=== PATIENT | male | born 1955 | race Caucasian/White ===

== ENCOUNTER → 2024-01-14 07:30 | Outpatient (REF) | payer OTHER, SELFPAY | LOC: HWRAD 07:30 | PROVIDERS: ATTENDING PHYSICIAN Nurse Practitioner Family | DX: M25.511 Pain in right shoulder (principal) | CPT/HCPCS: 73030 ==

== ENCOUNTER 2024-01-26 23:02 | Observation (INO) | payer OTHER, SELFPAY ==
--- NOTE | 2024-01-26 19:10 | ED.GENMED ---
History of Present Illness
General
Chief Complaint: Seizure
Time Seen by Provider: 01/26/24 19:10
History of Present Illness
History of Present Illness:
HPI: Patient presents with headache. The time of onset is unclear as the patient is currently a rather poor historian. He comes in with extremity tremor and flexion contracture to the upper extremity but does not feel his spinal cord stimulator is
a contributing factor. At 8:15 PM, I spoke to family. They tell me that he had a cortisone injection into her shoulder earlier today which caused very high blood sugar readings. He also started Ozempic a few days ago.
EXAM:
GENERAL: The patient appears uncomfortable
HEENT: Moist oral mucosa
CARDIOVASCULAR: No murmurs, normal heart rate, regular rhythm, No chest wall tenderness
PULMONARY: No respiratory distress, breath sounds are clear and equal
ABDOMEN: Soft with no peritoneal signs, no tenderness
NEUROLOGIC: Flexion contracture noted to the upper extremities and he has some difficulty following simple commands, is not dysarthric but there is some aphasia, tremor noted to the lower extremities bilaterally
PSYCHIATRIC: Insight and judgment are somewhat impaired
EXTREMITIES: Tremor noted as above, nontender
SKIN: No rash, no lesions
TIME OF INITIAL ENCOUNTER: 7:15 PM
NUMBER AND COMPLEXITY OF PROBLEMS ADDRESSED AT THE ENCOUNTER
� Chronic conditions affecting care: Complex migraine, CVA, high blood pressure, hyperlipidemia, CAD with coronary stents, BPH, diabetes
� Acute Exacerbation and/or Progression of Chronic Illness: This is an acute illness
� Differential Diagnosis includes: Exacerbation of migraine, intracranial pathology, seizure, CVA, diabetic complication
AMOUNT AND/OR COMPLEXITY OF DATA TO BE REVIEWED AND ANALYZED
� I performed an independent evaluation of and my interpretation is:
EKG: Sinus 90, normal axis, no acute ST abnormality
CT: CT imaging shows no acute abnormality
X-rays:
Laboratory Studies: White count and hemoglobin are normal, bicarb is low at 18, glucose is 258
Other:
� Review of other/old records: The patient was admitted here in October 2022�I reviewed the discharge summary�history of diabetes, lumbar spinal stimulator placement, BPH
� Clinical information was obtained by an independent historian: I spoke to family see above
� Prescriptions/Medications Considered but not given:
� Further testing considered but not performed:
RISK OF COMPLICATIONS AND/OR MORBIDITY OR MORTALITY OF PATIENT MANAGEMENT
� Social determinants of health affecting care: Lives at home
� Discussion with other providers: Hospitalist for admission at 10 PM
� Escalation of care including admission/observation vs risk of discharge considered: On reassessment at 8:20 PM, he is feeling improved after Reglan, fluids, Benadryl, and Tylenol were given. CT imaging is reassuring. Overall
he appears improved and mental status is greatly improved. On reassessment at 9:30 PM, the patient states that he is now worse again. He also tells me this is similar to prior episodes had related to migraine type of headache. I reviewed records
additionally and note that he was given Depacon in the past�I have ordered this today. The patient was also given IV insulin.
Past History
Past History
ED Past Medical History: CVA (TIA's), GERD, HTN, Hypercholesterolemia and NIDDM
ED Past Surgical History: Cardiac (Cardiac catheterization, no stents)
Social History
Tobacco: Non-smoker
Alcohol: None
Drug: None
Living: with family
Employment: Employed
Family History
Family History: Other (Reviewed and Noncontributory)
Phy Exam
Physical Exam
Physical Exam:
See HPI
Course
Orders/Labs/Results
Orders:
Orders
01/26/24 19:09
Electrocardiogram (*1) Urgent
Reason for Study: Other
Other Reason for Exam: myoclonic jerks
01/26/24 19:11
EKG- Treatment ONCE
01/26/24 19:16
CT Head W/o Iv Contrast Urgent
Comment:
Reason For Exam: severe BATES
01/26/24 19:17
0.9% Sodium Chloride 500 ml [Nss] 500 ml IV BOLUS
Diphenhydramine [Benadryl] 25 mg IV NOW STA
Metoclopramide [Reglan] 10 mg IV NOW STA
01/26/24 19:24
Basic Metabolic Panel Urgent
LFT [[id number]] Urgent
Lipase Urgent
01/26/24 19:25
Complete Blood Count/With Diff Urgent
01/26/24 19:54
Acetaminophen [Tylenol] 1,000 mg PO NOW STA
01/26/24 21:32
Insulin Human Regular [Novolin R] 6 units IV NOW STA
01/26/24 21:58
Valproate Sodium [Depacon] 500 mg 0.9% Sodium Chloride 50 ml [Nss] 50 ml IV NOW
01/26/24 22:30
Valproate Sodium [Depacon] 500 mg 0.9% Sodium Chloride 50 ml [Nss] 50 ml IV ONCE
Abnormal Lab Results
01/26/24 01/26/24
19:25
Absolute Neuts (auto) 7.4 H 10^3/uL
(1.4-6.5)
Absolute Lymphs (auto) 0.6 L 10^3/uL
(1.2-3.4)
Neutrophils % 88.8 H %
(42.2-75.2)
Lymphocytes % 7.5 L %
(20.5-51.1)
Sodium 131 L mmol/L
(135-145)
Carbon Dioxide 18 L mmol/L
(22-30)
Glucose 258 H mg/dl
(70-99)
01/26/24 19:25
01/26/24 19:24
Vital Signs
Initial and Last Documented VS:
Initial Vital Signs
Temp Pulse Resp BP Pulse Ox
97.4 F 95 23 128/66 95
01/26/24 19:12 01/26/24 19:12 01/26/24 19:12 01/26/24 19:12 01/26/24 19:12
Last Documented Vital Signs
Temp Pulse Resp BP Pulse Ox
97.4 F 90 24 122/64 95
01/26/24 19:12 01/26/24 21:15 01/26/24 21:15 01/26/24 21:00 01/26/24 21:15
*Critical Care Note
Total Time (30-74mins, 75-104mins- exclusive of procedures): Not Applicable
ED Attending Note
-
Portions of this chart may have been created with voice recognition software.� Occasional wrong word or��sound alike� substitutions may have occurred due to the inherent limitations of voice recognition software.
Discharge Plan
Departure
Patient Disposition: Admit
Date of Disposition: 01/26/24
Time of Disposition: 21:57
Presentation/result/management discussed w/ accepting MD/DO: Hospitalist
Discharge Problem:
Complicated migraine
Prescriptions:
No Action
clopidogrel 75 MG tablet
75 mg PO DAILY Qty: 1 0RF
Tradjenta 5 MG tablet
5 mg PO DAILY
ferrous sulfate [FeroSul] 325 MG tablet
65 mg PO DAILY
insulin aspart U-100 [Novolog FlexPen U-100 Insulin] 300 UNITS/3 ML insulin pen
28 units SC AC
Patient Comments:
01/26/2024: PT TOOK 4 DOSES OF 32 UNITS TODAY, WITH LAST DOSE TAKEN AROUND 1600
insulin glargine [Basaglar KwikPen U-100 Insulin] 100 unit/mL (3 mL) insulin pen
38 unit SC HS
gabapentin 400 mg capsule
400 mg PO QPM
atorvastatin 80 mg tablet
80 mg PO HS
lisinopril 20 mg tablet
20 mg PO DAILY
cholecalciferol (vitamin D3) [Vitamin D3] 25 mcg (1,000 unit) Tablet
25 mcg PO DAILY
Ozempic 0.25 mg or 0.5 mg (2 mg/3 mL) pen injector
0.25 mg SC TH
metoprolol succinate 50 MG tablet extended release 24 hr
50 mg PO DAILY
celecoxib 200 mg Capsule
200 mg PO DAILY
pantoprazole 40 MG tablet,delayed release (DR/EC)
40 mg PO DAILY Qty: 90 0RF
Interventions
Interventions:
*Risk Screen - Suicide Last Done: 01/26/24 19:12
*General Assessment Last Done: 01/26/24 19:12
*Neglect/Abuse Screening Last Done: 01/26/24 21:10
*ED COVID-19 Vaccine History Last Done: 01/26/24 19:51
ED- Cardiac Assessment Last Done: 01/26/24 21:10
ED- Neurological Assessment Last Done: 01/26/24 20:00
ED- Pulmonary Assessment Last Done: 01/26/24 21:10
[2024-01-26 19:12] VITALS: BP 128/66; BMI 37.7
[2024-01-26] MEDS: BENADRYL 25 MG IV (19:22)
[2024-01-26] MEDS: REGLAN 10 MG IV (19:22)
[2024-01-26] MEDS: NSS 500 IV (19:23)
[2024-01-26 19:56] LABS: % Basophils 0.1 % (0-2); % Immature Granulocytes 0.5 % (0-0.5); % Lymphocytes 7.5 % (20.5-51.1); % Monocytes 3.1 % (1.7-9.3); % Neutrophils 88.8 % (42.2-75.2); Absolute Lymphocytes 0.6 10^3/uL (1.2-3.4); Absolute Monocytes 0.3 10^3/uL (0.1-0.6); Absolute Neutrophils 7.4 10^3/uL (1.4-6.5); Hematocrit 47.1 % (39.0-52.0); Hemoglobin 16.7 g/dL (13.0-18.0); Mean Corp Hgb Conc. 35.5 g/dL (33.0-37.0); Mean Corpuscular Hgb 30.5 pg (27.0-31.0); Mean Corpuscular Volume 85.9 fL (80.0-94.0); Nucleated Red Blood Cells % 0 % (-); Platelet Count 212 10^3/uL (130-400); Red Blood Cell Count 5.48 10^6/uL (4.70-6.10); Red Cell Dist. Width 12.4 % (11.5-14.5); White Blood Cell Count 8.4 10^3/uL (4.8-10.8)
[2024-01-26 20:00] VITALS: BP 128/63
[2024-01-26] MEDS: TYLENOL 1000 MG PO (20:03)
[2024-01-26 20:10] LABS: ALT (SGPT) 31 U/L (0-50); AST (SGOT) 31 U/L (17-59); Albumin 4.4 g/dl (3.5-5.0); Alkaline Phosphatase 85 U/L (38-126); Blood Urea Nitrogen 16 mg/dl (9-20); Calcium 9.4 mg/dl (8.4-10.2); Carbon Dioxide 18 mmol/L (22-30); Chloride 102 mmol/L (98-107); Direct Bilirubin 0.1 mg/dl (0.0-0.4); Estimated Creatinine Clearance 110 ml/min; Glucose 258 mg/dl (70-99); Lipase 47 U/L (23-300); Potassium 4.9 mmol/L (3.5-5.1); Sodium 131 mmol/L (135-145); Total Bilirubin 0.7 mg/dl (0.2-1.3); eGFR > 60.00
[2024-01-26 21:00] VITALS: BP 122/64
[2024-01-26] MEDS: NOVOLIN R 6 UNITS IV (21:44)
--- NOTE | 2024-01-26 21:59 | HPS.HSE ---
Addendum entered and electronically signed by Christian Martinez MD 01/26/24 22:50:
Patient seen and examined independently with MEDIA ARTS PROFESSOR. 68-year-old male with past medical history of diabetes, lumbar spine surgery with spinal stimulator, BPH, history of headaches in the past attributed to migraine versus TIA presenting with upper
extremity tremor/flexion contractures upper extremities and severe frontal headache today as well as hyperglycemia after taking celecoxib for the first time and getting a right shoulder steroid injection earlier today.
His headaches are associated with blurry vision, vertigo, photophobia and nausea and right foot weakness which he sometimes suffers from attributed to lumbar degenerative disease. Highly likely this is a complex migraine. Patient has tolerated
other NSAIDs such as ibuprofen in the past unclear whether current presentation attributable to celecoxib. He did have some relief with Benadryl, metoclopramide, Depakote but headache returning. Started Toradol in addition to these other
medications. Continue IV fluids. Neurology consulted.
Hyperglycemia secondary to steroid injection. Patient took 42 units of NovoLog with meals today and did not eat anything and and despite his blood sugars in the 300s. Continue current insulin regimen, Tradjenta, moderate insulin sliding scale.
Consulted diabetic nurse educator.
Original Note:
Family Physician
-
Family Physician:
Chief Complaint
-
head ache
History of Present Illness
68 year old with PMH [place] CVA, GERD, HTN, HLD DM presented to us with BATES associated with n, dry heaves today afternoon. Patient got steroid injection this morning for his right shoulder pain. Patient also took Celebrex (which was prescribed to him
today from orthopedics )with meals for right shoulder pain this afternoon. As per , he was doing very well this morning. His symptoms started 2 hours after taking Celebrex. Patient started having uncontrolled movement of his extremities.
Patient stated photophobia stated blurry vision. He felt the room was spinning. Patient stated very weak and lethargic. Denies syncopal episode. Patient denied chest pain or short of breath patient denied abdominal pain or diarrhea patient
denied dysuria hematuria.
Head CT with no acute findings. Patient received Depakote, Reglan, Benadryl in the ER admitting for further management.
Medical History
Past Medical History
Past Medical History: Reports Other
Additional Past Medical History:
CVA
GERD
hypertension
Hyperlipidemia
Type 2 diabetes
Past Surgical History: Reports Other
Additional Past Surgical History:
Multiple back surgeries
Left collarbone surgery
Spinal stimulator
Social History
Tobacco: Non-smoker
Alcohol: None
Drug: None
Personal:
Living: With Family
Family History
Family History: Not pertinent
Allergies / Home Medications
Allergies reflects when Allergies were last updated in [facility].
Home Medications with original date entered in [facility]
Allergy/Medication List:
Allergies
Allergy/AdvReac Type Severity Reaction Status Date / Time
pregabalin [From Lyrica] Allergy Severe Swelling Verified 11/04/22 12:19
adhesive tape Allergy Intermediate Rash Verified 11/04/22 12:19
Home Medications
pantoprazole 40 mg tablet,delayed release 40 mg PO DAILY #90 tabs 12/27/20
clopidogrel 75 mg tablet 75 mg PO DAILY #1 tab 12/29/20
ferrous sulfate 325 mg (65 mg iron) tablet (FeroSul) 65 mg PO DAILY Supplement 01/02/22
insulin aspart U-100 100 unit/mL (3 mL) subcutaneous pen (Novolog FlexPen U-100 Insulin aspart) 28 units SC AC Diabetes 01/02/22
linagliptin 5 mg tablet (Tradjenta) 5 mg PO DAILY Diabetes 01/02/22
insulin glargine 100 unit/mL (3 mL) subcutaneous pen (Basaglar KwikPen U-100 Insulin) 38 unit SC HS Diabetes 11/04/22
atorvastatin 80 mg tablet 80 mg PO HS 01/26/24
celecoxib 200 mg capsule 200 mg PO DAILY 01/26/24
cholecalciferol (vitamin D3) 25 mcg (1,000 unit) tablet (Vitamin D3) 25 mcg PO DAILY 01/26/24
gabapentin 400 mg capsule 400 mg PO QPM 01/26/24
lisinopril 20 mg tablet 20 mg PO DAILY 01/26/24
metoprolol succinate 50 mg tablet,extended release 24 hr 50 mg PO DAILY 01/26/24
semaglutide 0.25 mg or 0.5 mg (2 mg/3 mL) subcutaneous pen injector (Ozempic) 0.25 mg SC 01/26/24
Review of Systems
-
Constitutional: Reports No Symptoms
EENT: Reports No Symptoms
Respiratory: Reports No Symptoms
Cardiac: Reports No Symptoms
Abdomen/GI: Reports Nausea
: Reports No Symptoms
Musculoskeletal: Reports No Symptoms
Skin: Reports No Symptoms
Neurological: Reports Dizzy, Headache and Weakness
Endocrine: Reports No Symptoms
Hematologic/Lymphatic: Reports No Symptoms
Psych: Reports No Symptoms
Physical Exam
Vital Signs
Vital Signs
Temp Pulse Resp BP Pulse Ox
97.4 F 90 24 122/64 95
01/26/24 19:12 01/26/24 21:15 01/26/24 21:15 01/26/24 21:00 01/26/24 21:15
Physical Exam
General: Well Developed, Well Nourished and No Apparent Distress
HEENT: NormoCephalic, Moist mucous membranes and Atraumatic
Respiratory: Clear
Cardiac: S1/S2 and Regular Rhythm; No Murmur or Rub
GI: Soft, Non Tender, Non Distended and Normal Bowel Sounds; No Organomegaly
Rectal: Deferred by Provider
Musculoskeletal: No Clubbing, No Cyanosis and No Edema
Skin: No Rash
Neuro: AO x 3 and Nonfocal/grossly intact
Psych: Calm
Laboratory Results
-
01/26/24 19:25
01/26/24 19:24
Laboratory Results
Total Bilirubin 0.7 mg/dl (0.2-1.3) 01/26/24 19:24
AST 31 U/L (17-59) 01/26/24 19:24
ALT 31 U/L (0-50) 01/26/24 19:24
Alkaline Phosphatase 85 U/L (38-126) 01/26/24 19:24
Lipase 47 U/L (23-300) 01/26/24 19:24
Data Reviewed
-
CT Scan: Report Reviewed by me
Lab Data: Labs Reviewed by me
Impression/Plan
-
#severe BATES associated with photophobia and nausea likely complex migraine
-head CT with No CT evidence for acute intracranial hemorrhage or obstructive hydrocephalus.� Mild diffuse cerebral and cerebellar volume loss.
-iv Reglan, Benadryl prn
-Toradol once in ER
-ctm
-neurology consulted
#steroid induced hyperglycemia/ IDDM
-received 4 units in the ER
-moderate sliding scale
-Basaglar 38u at hs
28units aspart with meals
-CHO diet
-Tradjenta continued
-on Ozempic at home.
#History of lumbar spinal surgery
-Spinal stimulator placement history
-gabapentin continued
#essential htn
-lisinopril continued
-metoprolol continued
#GERD
-PPI continued
#BPH
#CVA
-statin/Plavix continued
#iron def anemia
-ferrous sulfate continued
DVT PPX - lovenox
Full code
[2024-01-26 22:00] VITALS: BP 121/74
[2024-01-26 22:16] LABS: Glucose - Point of Care 309 mg/dl (70-99)
[2024-01-26 23:00] VITALS: BP 120/74
[2024-01-26] MEDS: TORADOL 15 MG IV (23:06)
[2024-01-26] MEDS: DEPACON 55 MG IV (23:08)
[2024-01-27] VITALS (19 sets, daily range): BP systolic 107–137; BP diastolic 48–79
[2024-01-27] MEDS: NSS 1000 IV ×2 (00:09→12:55)
[2024-01-27 01:09] LABS: Glucose - Point of Care 224 mg/dl (70-99)
[2024-01-27 06:01] LABS: Mean Corp Hgb Conc. 34.1 g/dL (33.0-37.0); Mean Corpuscular Hgb 30.3 pg (27.0-31.0); Mean Corpuscular Volume 88.9 fL (80.0-94.0); Mean Platelet Volume 10.3 fL (7.4-10.4); Platelet Count 196 10^3/uL (130-400); Red Blood Cell Count 4.95 10^6/uL (4.70-6.10); Red Cell Dist. Width 12.6 % (11.5-14.5); White Blood Cell Count 16.4 10^3/uL (4.8-10.8)
[2024-01-27 06:25] LABS: Blood Urea Nitrogen 20 mg/dl (9-20); Calcium 8.7 mg/dl (8.4-10.2); Carbon Dioxide 22 mmol/L (22-30); Chloride 105 mmol/L (98-107); Estimated Creatinine Clearance 98 ml/min; Glucose 206 mg/dl (70-99); Potassium 4.4 mmol/L (3.5-5.1); Sodium 133 mmol/L (135-145); eGFR > 60.00
--- NOTE | 2024-01-27 07:24 | CON.NEURO ---
Consultation
Order
Date of Consultation: 01/27/24
Reason for Consult: Headache
CC: none
HPI: This is a 68-year-old man who presented to [facility] on January 26, 2024 with headache and hyperglycemia. According to the patient he developed refractory hyperglycemia despite of multiple dose insulin therapy following
undergoing right shoulder steroid injections. He recalls developing gradual in onset holocephalic nonpositional with associated photophobia, phonophobia, nausea, worse with physical exertion and 'spasms 'as well as worsening of his baseline
ambulatory dysfunction leading him to seek medical attention. No reports of fever, head trauma. Mr. Hager states that he was recently started on Neurontin as well as Ozempic.
The patient has a history of episodic headache with associated R HP lasting for over 24 hours requiring TPA administration in the past.
MAR: Toradol�15 mg, Benadryl, metoclopramide 10 mg, Depacon 500 mg
ER VS: 128/66, 95, afebrile
PDMP:Tramadol Hcl 50 Mg 60 tabs filled in on 11/06/2023, 10/19/2023, Oxycodone Hcl 5 Mg 30 tabs filled in on 10/26/2023.
Labs: WBCs 8.4�16.4, sodium 131, glucose�258
CT head-mild diffuse cerebral and cerebellar volume loss.
PMH: LS DJD, migraine with aura, CAD, HTN, DLP, DM, GERD, OA, iron deficiency anemia, obesity
PSH: spinal stimulator, multiple back surgeries, �left clavicular ORIF
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
FH: Mother, daughter and siblings�headache
All: pregabalin�
ROS:Constitutional: Negative. Negative for chills, fever and unexpected weight change.
HENT: Negative for ear pain, hearing loss, tinnitus and trouble swallowing.
Eyes: Negative. Negative for photophobia, pain and visual disturbance.
Respiratory: Negative for cough, choking and shortness of breath.
Cardiovascular: Negative for chest pain, palpitations and leg swelling.
Gastrointestinal: Positive for intermittent nausea
Endocrine: Negative. Negative for cold intolerance.
Musculoskeletal: positive for chronic lower back pain, spasms
Skin: Negative for rash.
Allergic/Immunologic: Negative. Negative for immunocompromised state.
Neurological: Positive for transient hand
General: Well developed. In no acute distress.
Cardio: Regular rate and rhythm without murmur. Extremities are without cyanosis or edema.
Neuro:
Mental Status: Alert, oriented to person, place, and date. Normal attention and recall. Good fund of knowledge. Follows complex requests across the midline. Comprehension, naming, and repetition intact. Immediate and delayed recall 3/3.
Cranial Nerves: Pupils are equally round and reactive to light. EOMs full. Visual posadas full to confrontation. No ptosis. No nystagmus. V1-V3 intact to light touch and pinprick bilaterally, symmetric. Face symmetric. Normal hearing AU. The
palate elevated well. SCMs and traps 5/5. Tongue midline. No dysarthria.
Motor: Normal bulk and tone. No pronator or arm drift. Strength 5/5 throughout, except for proximal right greater than left leg weakness 4-/, clonus.
Reflexes: 1+ throughout the upper extremities and 0 knees. 0/2 in AJs. Plantar responses flexor bilaterally.
Sensory: Reduced proprioception in the right
Coordination: No dysmetria or tremor.
Gait: deferred
Assessment and Plan:
I. Probably secondary headache due to hyperglycemia
II. Chronic lower back pain
III. Ambulatory dysfunction
-Fall precautions
-Please check Mg, TFTs, Lyme, ESR/CRP
-Avoid opioids medications known to cause headache as a side effect (Ozempic is known to cause headache in 14% to 17% of treated patient's)
-IV Toradol 30 mg, Reglan 10 mg, Benadryl 25 mg Q8h PRN for moderate to severe headache.
-Will continue to follow
I personally reviewed all radiology and labs along with past medical records pertinent to current medical problems. Total time spent in patient care is 60 minutes.
Thank you for allowing us to participate in the care of this patient. We will continue to follow. Please do not hesitate to contact us with any questions or concerns.
Subjective/Objective
Subjective Data
Date of Service: January 27, 2024
Objective Data
Vital Signs
Temp Pulse Resp BP Pulse Ox
36.3 C 71 18 128/71 97
01/26/24 19:12 01/27/24 06:00 01/27/24 06:00 01/27/24 06:00 01/27/24 06:00
Lab Results
01/27/24 05:46
01/27/24 05:46
Sodium 133 mmol/L (135-145) L 01/27/24 05:46
Potassium 4.4 mmol/L (3.5-5.1) 01/27/24 05:46
BUN 20 mg/dl (9-20) 01/27/24 05:46
Glucose 206 mg/dl (70-99) H 01/27/24 05:46
Calcium 8.7 mg/dl (8.4-10.2) 01/27/24 05:46
Patient Allergies
pregabalin [From Lyrica] Allergy (Severe, Verified 11/04/22 12:19)
Swelling
adhesive tape Allergy (Intermediate, Verified 11/04/22 12:19)
Rash
Medications
-
Active Medications
Generic Name Dose Route Start Last Admin
Trade Name Freq PRN Reason Stop Dose Admin
Acetaminophen 650 mg 01/26/24 23:20
Acetaminophen 325 Mg Tablet PO 02/23/24 23:19
Q4HPRN PRN
mild pain/BATES/temp> 100.4F
Atorvastatin Calcium 80 mg 01/27/24 22:00
Atorvastatin (Lipitor) 80 Mg Tablet PO 02/24/24 21:59
HS MOHINDER
Cholecalciferol 25 mcg 01/27/24 08:00
Cholecalciferol (Vitamin D3) 25 Mcg Tablet (1,000 Units) PO 02/24/24 07:59
DAILY MOHINDER
Clopidogrel Bisulfate 75 mg 01/27/24 08:00
Clopidogrel 75 Mg Tablet PO 02/24/24 07:59
DAILY MOHINDER
Dextrose 12.5 grams 01/26/24 23:20
Dextrose 50% (0.5 Grams/Ml) 50 Ml Syringe IV 02/23/24 23:19
[id number] PRN
hypoglycemia
Protocol
Diphenhydramine HCl 25 mg 01/26/24 23:20
Diphenhydramine 50 Mg/Ml 1 Ml Vial IV 02/23/24 23:19
Q4HPRN PRN
headache
Enoxaparin Sodium 40 mg 01/27/24 18:00
Enoxaparin Sodium 40 Mg/0.4 Ml Syringe SC 02/24/24 17:59
QPM MOHINDER
Ferrous Sulfate 325 mg 01/27/24 08:00
Ferrous Sulfate 325 Mg Tablet PO 02/24/24 07:59
DAILY MOHINDER
Gabapentin 400 mg 01/27/24 18:00
Gabapentin 400 Mg Capsule PO 02/24/24 17:59
QPM MOHINDER
Glucagon 1 mg 01/26/24 23:20
Glucagon 1 Mg Vial IM 02/23/24 23:19
PRN PRN
hypoglycemia
Protocol
Sodium Chloride 1,000 mls @ 80 mls/hr 01/26/24 23:20 01/27/24 00:09
Nss IV 1,000 mls
.[id number] MOHINDER Administration
Insulin Glargine 38 units/ 0.38 mls @ 0 mls/hr 01/27/24 22:00
Device SC 02/24/24 21:59
HS MOHINDER
As Directed
Insulin Aspart 0 units 01/27/24 07:30
Insulin Aspart Moderate Resistance 300 Units/3 Ml Pen.Injctr SC 02/24/24 07:29
AC MOHINDER
Protocol
Insulin Aspart 28 units 01/27/24 07:30
Insulin Aspart (100 Units/Ml) 3 Ml Flexpen SC 02/24/24 07:29
AC MOHINDER
Ketorolac Tromethamine 15 mg 01/27/24 05:00
Ketorolac 15 Mg/Ml Injection IV 02/01/24 04:59
Q6HPRN PRN
severe pain
Lisinopril 20 mg 01/27/24 08:00
Lisinopril 20 Mg Tablet PO 02/24/24 07:59
DAILY MOHINDER
Metoclopramide HCl 10 mg 01/26/24 23:20
Metoclopramide 10 Mg/2 Ml Vial IV 02/23/24 23:19
Q6HPRN PRN
n/v
Metoprolol Succinate 50 mg 01/27/24 08:00
Metoprolol 50 Mg Extended Release Tablet PO 02/24/24 07:59
DAILY MOHINDER
Pantoprazole Sodium 40 mg 01/27/24 08:00
Pantoprazole 40 Mg Delayed Release Tablet PO 02/24/24 07:59
DAILY MOHINDER
Sitagliptin Phosphate 100 mg 01/27/24 08:00
Sitagliptin (Januvia) 100 Mg Tablet PO 02/24/24 07:59
DAILY MOHINDER
Sodium Chloride 0 flush 01/26/24 23:00
Sodium Chloride 0.9% (Flush) Syringe IV 02/23/24 22:59
PER PROTOCOL MOHINDER
Home Medications
Medication Instructions Recorded
pantoprazole 40 mg tablet,delayed 40 mg PO DAILY #90 tabs 12/27/20
release
clopidogrel 75 mg tablet 75 mg PO DAILY #1 tab 12/29/20
ferrous sulfate 325 mg (65 mg 65 mg PO DAILY Supplement 01/02/22
iron) tablet (FeroSul)
insulin aspart U-100 100 unit/mL 28 units SC AC Diabetes 01/02/22
(3 mL) subcutaneous pen (Novolog
FlexPen U-100 Insulin aspart)
linagliptin 5 mg tablet (Tradjenta) 5 mg PO DAILY Diabetes 01/02/22
insulin glargine 100 unit/mL (3 38 unit SC HS Diabetes 11/04/22
mL) subcutaneous pen (Basaglar
KwikPen U-100 Insulin)
atorvastatin 80 mg tablet 80 mg PO HS 01/26/24
celecoxib 200 mg capsule 200 mg PO DAILY 01/26/24
cholecalciferol (vitamin D3) 25 25 mcg PO DAILY 01/26/24
mcg (1,000 unit) tablet (Vitamin
D3)
gabapentin 400 mg capsule 400 mg PO QPM 01/26/24
lisinopril 20 mg tablet 20 mg PO DAILY 01/26/24
metoprolol succinate 50 mg 50 mg PO DAILY 01/26/24
tablet,extended release 24 hr
semaglutide 0.25 mg or 0.5 mg (2 0.25 mg SC TH 01/26/24
mg/3 mL) subcutaneous pen injector
(Ozempic)
Vital Signs and Labs
-
Vital Signs and Labs:
Vital Signs
Temp Pulse Resp BP Pulse Ox
36.6 C 80 14 111/68 99
01/27/24 07:24 01/27/24 08:15 01/27/24 07:24 01/27/24 08:15 01/27/24 07:24
Lab Results
01/27/24 05:46
01/27/24 05:46
Sodium 133 mmol/L (135-145) L 01/27/24 05:46
Potassium 4.4 mmol/L (3.5-5.1) 01/27/24 05:46
BUN 20 mg/dl (9-20) 01/27/24 05:46
Glucose 206 mg/dl (70-99) H 01/27/24 05:46
Calcium 8.7 mg/dl (8.4-10.2) 01/27/24 05:46
Home Medications
-
Home Medications
pantoprazole 40 mg tablet,delayed release 40 mg PO DAILY #90 tabs 12/27/20
clopidogrel 75 mg tablet 75 mg PO DAILY #1 tab 12/29/20
ferrous sulfate 325 mg (65 mg iron) tablet (FeroSul) 65 mg PO DAILY Supplement 01/02/22
insulin aspart U-100 100 unit/mL (3 mL) subcutaneous pen (Novolog FlexPen U-100 Insulin aspart) 28 units SC AC Diabetes 01/02/22
linagliptin 5 mg tablet (Tradjenta) 5 mg PO DAILY Diabetes 01/02/22
insulin glargine 100 unit/mL (3 mL) subcutaneous pen (Basaglar KwikPen U-100 Insulin) 38 unit SC HS Diabetes 11/04/22
atorvastatin 80 mg tablet 80 mg PO HS 01/26/24
celecoxib 200 mg capsule 200 mg PO DAILY 01/26/24
cholecalciferol (vitamin D3) 25 mcg (1,000 unit) tablet (Vitamin D3) 25 mcg PO DAILY 01/26/24
gabapentin 400 mg capsule 400 mg PO QPM 01/26/24
lisinopril 20 mg tablet 20 mg PO DAILY 01/26/24
metoprolol succinate 50 mg tablet,extended release 24 hr 50 mg PO DAILY 01/26/24
semaglutide 0.25 mg or 0.5 mg (2 mg/3 mL) subcutaneous pen injector (Ozempic) 0.25 mg SC TH 01/26/24
Medications
-
Medications:
Generic Name Dose Route Start Last Admin
Trade Name Freq PRN Reason Stop Dose Admin
Acetaminophen 650 mg 01/26/24 23:20
Acetaminophen 325 Mg Tablet PO 02/23/24 23:19
Q4HPRN PRN
mild pain/BATES/temp> 100.4F
Atorvastatin Calcium 80 mg 01/27/24 22:00
Atorvastatin (Lipitor) 80 Mg Tablet PO 02/24/24 21:59
HS MOHINDER
Cholecalciferol 25 mcg 01/27/24 08:00 01/27/24 08:13
Cholecalciferol (Vitamin D3) 25 Mcg Tablet (1,000 Units) PO 02/24/24 07:59 25 mcg
DAILY MOHINDER Administration
Clopidogrel Bisulfate 75 mg 01/27/24 08:00 01/27/24 08:13
Clopidogrel 75 Mg Tablet PO 02/24/24 07:59 75 mg
DAILY MOHINDER Administration
Dextrose 12.5 grams 01/26/24 23:20
Dextrose 50% (0.5 Grams/Ml) 50 Ml Syringe IV 02/23/24 23:19
[id number] PRN
hypoglycemia
Protocol
Diphenhydramine HCl 25 mg 01/26/24 23:20
Diphenhydramine 50 Mg/Ml 1 Ml Vial IV 02/23/24 23:19
Q4HPRN PRN
headache
Enoxaparin Sodium 40 mg 01/27/24 18:00
Enoxaparin Sodium 40 Mg/0.4 Ml Syringe SC 02/24/24 17:59
QPM MOHINDER
Ferrous Sulfate 325 mg 01/27/24 08:00 01/27/24 08:13
Ferrous Sulfate 325 Mg Tablet PO 02/24/24 07:59 325 mg
DAILY MOHINDER Administration
Gabapentin 400 mg 01/27/24 18:00
Gabapentin 400 Mg Capsule PO 02/24/24 17:59
QPM MOHINDER
Glucagon 1 mg 01/26/24 23:20
Glucagon 1 Mg Vial IM 02/23/24 23:19
PRN PRN
hypoglycemia
Protocol
Sodium Chloride 1,000 mls @ 80 mls/hr 01/26/24 23:20 01/27/24 00:09
Nss IV 1,000 mls
.[id number] MOHINDER Administration
Insulin Glargine 38 units/ 0.38 mls @ 0 mls/hr 01/27/24 22:00
Device SC 02/24/24 21:59
HS MOHINDER
As Directed
Insulin Aspart 0 units 01/27/24 07:30 01/27/24 08:16
Insulin Aspart Moderate Resistance 300 Units/3 Ml Pen.Injctr SC 02/24/24 07:29 1 units
AC MOHINDER Administration
Protocol
Insulin Aspart 28 units 01/27/24 07:30 01/27/24 09:29
Insulin Aspart (100 Units/Ml) 3 Ml Flexpen SC 02/24/24 07:29 28 units
AC MOHINDER Administration
Ketorolac Tromethamine 15 mg 01/27/24 05:00
Ketorolac 15 Mg/Ml Injection IV 02/01/24 04:59
Q6HPRN PRN
severe pain
Lisinopril 20 mg 01/27/24 08:00 01/27/24 08:15
Lisinopril 20 Mg Tablet PO 02/24/24 07:59 20 mg
DAILY MOHINDER Administration
Metoclopramide HCl 10 mg 01/26/24 23:20
Metoclopramide 10 Mg/2 Ml Vial IV 02/23/24 23:19
Q6HPRN PRN
n/v
Metoprolol Succinate 50 mg 01/27/24 08:00 01/27/24 08:15
Metoprolol 50 Mg Extended Release Tablet PO 02/24/24 07:59 50 mg
DAILY MOHINDER Administration
Pantoprazole Sodium 40 mg 01/27/24 08:00 01/27/24 08:13
Pantoprazole 40 Mg Delayed Release Tablet PO 02/24/24 07:59 40 mg
DAILY MOHINDER Administration
Sitagliptin Phosphate 100 mg 01/27/24 08:00 01/27/24 08:13
Sitagliptin (Januvia) 100 Mg Tablet PO 02/24/24 07:59 100 mg
DAILY MOHINDER Administration
Sodium Chloride 0 flush 01/26/24 23:00
Sodium Chloride 0.9% (Flush) Syringe IV 02/23/24 22:59
PER PROTOCOL MOHINDER
[2024-01-27 08:11] LABS: Glucose - Point of Care 190 mg/dl (70-99)
[2024-01-27] MEDS: PROTONIX 40 MG PO (08:13)
[2024-01-27] MEDS: JANUVIA 100 MG PO (08:13)
[2024-01-27] MEDS: VITAMIN D3 (cholecalciferol) 25 MCG PO (08:13)
[2024-01-27] MEDS: PLAVIX 75 MG PO (08:13)
[2024-01-27] MEDS: FEOSOL 325 MG PO (08:13)
[2024-01-27] MEDS: TOPROL XL 50 MG PO (08:15)
[2024-01-27] MEDS: ZESTRIL 20 MG PO (08:15)
[2024-01-27] MEDS: NOVOLOG FLEXPEN-MODERATE RESISTANCE 1 UNITS SC ×2 (08:16→12:54)
--- NOTE | 2024-01-27 08:41 | W.PN.HOSP.TC ---
Today's Communication/Plan
-
PT eval
await neuro eval
Assessment / Plan
Assessment / Plan
1. Presumed complex migraine episode
-Presented with acute onset of severe headache with photophobia and nausea
-Have remote history of migraine episodes
-CT head without contrast did not show any acute abnormality
-Patient got IV Toradol/Reglan in ER
-Subjective feeling better currently. Nausea has improved as well
-Neurology evaluation pending today
2. Episode of hyperglycemia
IDDM
-Blood glucose elevated 300+ according to patient, took home insulin without help
-Hyperglycemia episode likely from steroid injection
-Continue carb controlled diet/insulin regimen, diabetic nurse petitioner consulted
3. History of lumbar laminectomy
S/p spinal stimulator in place
-Right lower extremity neuropathic symptoms, chronic in nature
History of CVA
History of CAD
Essential hypertension
GERD
BPH
Obesity
DVT PPX - heparin subq
Full code
Anticipated Discharge: Within 24 hours
Subjective/Interval History
-
Date of Service: January 27, 2024
Patient headache is better
Nausea is improved
Some right lower extremity tingling
Objective Data
-
Labs:
Laboratory Results
01/27/24
05:46
WBC 16.4 H
Hgb 15.0
Hct 44.0
Plt Count 196
Sodium 133 L
Potassium 4.4
Chloride 105
Carbon Dioxide 22
BUN 20
Creatinine 0.9
Glucose 206 H
Calcium 8.7
Vital Signs:
Vital Signs
Temp Pulse Resp BP Pulse Ox
97.8 F 80 14 111/68 99
01/27/24 07:24 01/27/24 08:15 01/27/24 07:24 01/27/24 08:15 01/27/24 07:24
Review of Systems
-
Respiratory: Reports No Symptoms
Cardiac: Reports No Symptoms
Abdomen/GI: Reports Nausea
Physical Exam
-
General: Obese; Negative Appears in Distress
HEENT: Negative Oxygen
Respiratory: Clear to Auscultation
Cardiac: Regular Rhythm and S1/S2; Negative Murmur
GI: Soft, Nontender and Nondistended
Neuro: Awake, Alert, Oriented and No Motor Deficits
--- NOTE | 2024-01-27 08:46 | PN.DE.MGMTRT ---
Insulin Management
- -
01/27/2024: Diabetes Management Consult
68 year old male admitted with acute onset of severe headache with photophobia and nausea, likely due to complex migraine.
PMH includes: CVA/TIAs, GERD, HTN, HLD, IDDM, A1C 7.7%, Cr 0.9, eGFR >60
Of note, pt received steroid injection on 01/25 for right shoulder pain.
Pt seen in the ED, he is awake, A/O x3, pleasant, sitting up in bed, c/o headache and nausea.
Upon interview, pt reports has no Endo, PCP manages his diabetes. He is using CGM- [employer] for glucose monitoring.
He is taking Basaglar 38 units @HS, NovoLog 28units AC and Tradjenta 5 mg daily. Ozempic 0.25mg Q was recently started by his PCP.
He states that he noticed his glucose levels were trending up to >400 which prompted him to take 42 units of NovoLog but that didn't bring his blood sugar down despite not eating all day yesterday. His glucose on admission was >300, he was treated
with 6 units of regular insulin.
Currently with ongoing Hyperglycemia, glucose has ranged from 206 to 309 and he is ordered NovoLog 28 units AC, Basaglar 38 units and moderate corrective with meals by admitting team.
Will make no changes to current regimen: Lantus 38 units @HS, NovoLog 28 units AC, corrective insulin with meals and Januvia 50 mg daily (Tradjenta- NF).
Change diet from 2200 to 2000 garrte. Accuchek AC/HS. Check 3AM blood sugar
Will closely follow and make further dose adjustments as necessary
Diabetes History
- -
Type of Diabetes: 2 requiring insulin
Pre-Admission Diabetes Regimen
01/26/24 01/27/24
: 05:46
Creatinine 0.8 0.9
Insulin Pump Settings
IP Diabetes Regimen
01/26/24 01/26/24 01/27/24
19:24 21:14 01:08
Glucose 258 H
POC Glucose 309 H 224 H
01/27/24 01/27/24
05:46 08:10
Glucose 206 H
POC Glucose 190 H
Patient Education
[2024-01-27 09:04] LABS: Erythrocyte Sed Rate 3 mm/hour (0-20)
[2024-01-27 09:09] LABS: Magnesium 1.7 mg/dl (1.6-2.3)
[2024-01-27 09:12] LABS: C-Reactive Protein < 5.00 mg/L (0.0-10.00)
[2024-01-27] MEDS: NOVOLOG FLEXPEN 28 UNITS SC ×3 (09:29→17:33)
[2024-01-27 09:42] LABS: TSH Reflex To Free T4 0.79 uIU/ml (0.47-4.68)
[2024-01-27 09:49] LABS: Glycohemoglobin (HgbA1c) 7.7 % (4.0-5.6)
--- NOTE | 2024-01-27 10:57 | CM ---
Addendum entered by Erendira Monroe 01/27/24 11:47:
OBS/ORTIZ form signed and scanned into chart
Original Note:
Patient seen at bedside. Patient states that he lives with his in a 2 story home. Patient has a walker and a cane in the home and has been going to [facility] rehab as an outpatient recently. Patient PCP is Swetha Lisa from [facility]
practice and he uses the [facility] for medications. Patient also indicated that he is independent of ADL's and IADL's and drives as well. CM will provide OBS/ORTIZ form and follow for discharge planning needs.
Plan; home with family watch for VN needs
[2024-01-27] MEDS: BENADRYL 25 MG IV ×2 (11:22→19:52)
[2024-01-27] MEDS: TORADOL 15 MG IV ×2 (11:22→19:52)
[2024-01-27] MEDS: REGLAN 10 MG IV ×2 (11:23→19:52)
[2024-01-27 12:34] LABS: Glucose - Point of Care 176 mg/dl (70-99)
[2024-01-27] MEDS: NOVOLOG FLEXPEN-MODERATE RESISTANCE SC (17:34)
[2024-01-27 17:43] LABS: Glucose - Point of Care 110 mg/dl (70-99)
[2024-01-27] MEDS: LOVENOX 40 MG SC (17:50)
[2024-01-27] MEDS: NEURONTIN 400 MG PO (17:50)
[2024-01-27] MEDS: LIPITOR 80 MG PO (19:54)
[2024-01-27 21:34] LABS: Glucose - Point of Care 167 mg/dl (70-99)
[2024-01-27] MEDS: LANTUS 0.380000000000000004 UNITS SC (22:33)
[2024-01-28] VITALS (7 sets, daily range): BP systolic 121–146; BP diastolic 52–72; PULSE 71–80; O2SAT 98
[2024-01-28] MEDS: NSS 1000 IV (01:30)
[2024-01-28] MEDS: CLARITIN 10 MG PO (06:36)
[2024-01-28 06:48] LABS: Glucose - Point of Care 153 mg/dl (70-99)
[2024-01-28] MEDS: NOVOLOG FLEXPEN 28 UNITS SC ×3 (08:01→18:10)
[2024-01-28] MEDS: NOVOLOG FLEXPEN-MODERATE RESISTANCE 1 UNITS SC (08:01)
[2024-01-28] MEDS: PROTONIX 40 MG PO (08:02)
[2024-01-28] MEDS: TOPROL XL 50 MG PO (08:02)
[2024-01-28] MEDS: FEOSOL 325 MG PO (08:02)
[2024-01-28] MEDS: VITAMIN D3 (cholecalciferol) 25 MCG PO (08:02)
[2024-01-28] MEDS: ZESTRIL 20 MG PO (08:02)
[2024-01-28] MEDS: PLAVIX 75 MG PO (08:02)
[2024-01-28] MEDS: JANUVIA 100 MG PO (08:02)
--- NOTE | 2024-01-28 09:11 | PN.DE.MGMTRT ---
Insulin Management
- -
01/28/2024: Diabetes Management Follow up
Patient admitted with acute onset of severe headache with photophobia and nausea, likely due to complex migraine.
PMH includes: CVA/TIAs, GERD, HTN, HLD, IDDM, A1C 7.7%, Cr 0.9, eGFR >60
Patient received steroid injection on 01/25 for right shoulder pain.
Patient is sleeping not awakened.
Patient reports his PCP manages his diabetes. He is using CGM- [employer] for glucose monitoring.
He is taking Basaglar 38 units @HS, NovoLog 28units AC and Tradjenta 5 mg daily. Ozempic 0.25mg Q was recently started by his PCP.
His glucose on admission was >300, he was treated with 6 units of regular insulin.
Yesterday his home regimen of NovoLog 28 units AC, Basaglar 38 units @ HS was resumed. Glucose has trended down to 110 pre dinner and 167 @ HS. Received 38 units lantus @ HS, glucose this AM 153. Will make no further changes to regimen.
Diabetes History
- -
Type of Diabetes: 2 requiring insulin
Pre-Admission Diabetes Regimen
Lab Results
Hemoglobin A1c 7.7 % (4.0-5.6) H 01/27/24 05:46
Insulin Pump Settings
IP Diabetes Regimen
01/27/24 01/27/24 01/27/24
12:33 17:30 21:32
POC Glucose 176 H 110 H 167 H
01/28/24
06:47
POC Glucose 153 H
Patient Education
[2024-01-28] MEDS: BENADRYL 25 MG IV ×2 (09:58→23:04)
[2024-01-28] MEDS: TORADOL 15 MG IV ×2 (09:58→23:00)
[2024-01-28] MEDS: REGLAN 10 MG IV ×2 (10:00→23:03)
[2024-01-28 11:34] LABS: Glucose - Point of Care 101 mg/dl (70-99)
[2024-01-28] MEDS: NOVOLOG FLEXPEN-MODERATE RESISTANCE SC ×2 (12:41→18:11)
--- NOTE | 2024-01-28 14:55 | W.PN.HOSP.TC ---
Today's Communication/Plan
-
Assuming no further episodes next 24 hrs since this morning's episode, will plan dc to home tomorrow
dc IVF
Assessment / Plan
Assessment / Plan
1. Presumed complex migraine episode
-Presented with acute onset of severe headache with photophobia and nausea
-Have remote history of migraine episodes
-CT head without contrast did not show any acute abnormality
-Patient got IV Toradol/Reglan in ER
-Had severe episode this morning, with holm, N/V approx 1 hr after receiving Toradol/Benadryl/Reglan. Subjective feeling better currently, but very hesistant to go home after this morning's episode. Nausea has improved as well
-Neurology evaluation appreciated
2. Episode of hyperglycemia
IDDM
-Blood glucose elevated 300+ according to patient, took home insulin without help
-Hyperglycemia episode likely from steroid injection and in turn, neuro believes neurologic symptoms were triggered by hyperglycemia. Unclear why had severe episode this morning
-Continue carb controlled diet/insulin regimen, diabetic nurse demetraitioner consulted
3. History of lumbar laminectomy
S/p spinal stimulator in place
-Right lower extremity neuropathic symptoms, chronic in nature
History of CVA
History of CAD
Essential hypertension
GERD
BPH
Obesity
DVT PPX - heparin subq
Full code
Anticipated Discharge: Within 24 hours
Subjective/Interval History
-
Date of Service: January 28, 2024
Sever headache earlier today, 1 hour after received 'cocktail'
Objective Data
-
Vital Signs:
Vital Signs
Temp Pulse Resp BP Pulse Ox
97.9 F 68 16 121/57 97
01/28/24 10:47 01/28/24 10:47 01/28/24 10:47 01/28/24 10:47 01/28/24 10:47
Review of Systems
-
History Source: Patient
Constitutional: Reports No Symptoms
EENT: Reports No Symptoms Reported
Respiratory: Reports No Symptoms
Cardiac: Reports No Symptoms
Abdomen/GI: Reports Nausea and Vomiting (this morning)
Genitourinary: Reports No Symptoms
Neuro: Reports Headache (this morning)
Physical Exam
-
General: Well Developed, Well Nourished and No Apparent Distress
HEENT: Normocephalic, Atraumatic and Moist Mucous Membranes
Respiratory: Clear to Auscultation; Negative Wheezes, Rales or Rhonchi
Cardiac: Regular Rhythm and S1/S2
GI: Soft, Nontender and Nondistended
Musculoskeletal: No Clubbing, No Cyanosis and No Edema
Neuro: Awake, Alert and Oriented
[2024-01-28] MEDS: NON-FORMULARY ITEM 0.25 MG SC (14:58)
--- NOTE | 2024-01-28 15:22 | PTCARENOTE ---
Patient with episode of feeling weak and dizzy while working with PT. Had to sit patient in mccall and take a break for 2 minutes, BP was stable. See Vital signs. Patient placed back in bed reports feeling better.
[2024-01-28 16:50] LABS: Glucose - Point of Care 122 mg/dl (70-99)
[2024-01-28] MEDS: LOVENOX 40 MG SC (18:11)
[2024-01-28] MEDS: NEURONTIN 400 MG PO (18:11)
[2024-01-28 20:45] LABS: Glucose - Point of Care 46 mg/dl (70-99)
[2024-01-28 21:12] LABS: Glucose - Point of Care 111 mg/dl (70-99)
[2024-01-28 22:36] LABS: Glucose - Point of Care 136 mg/dl (70-99)
[2024-01-28] MEDS: LANTUS 0.380000000000000004 UNITS SC (22:53)
[2024-01-28] MEDS: LIPITOR 80 MG PO (22:54)
[2024-01-29 01:00] LABS: Glucose - Point of Care 150 mg/dl (70-99)
[2024-01-29 03:02] LABS: Glucose - Point of Care 126 mg/dl (70-99)
[2024-01-29 03:44] VITALS: BP 147/65
[2024-01-29 06:46] LABS: % Basophils 0.6 % (0-2); % Eosinophils 2.6 % (0-6); % Immature Granulocytes 0.9 % (0-0.5); % Lymphocytes 23.1 % (20.5-51.1); % Monocytes 12.7 % (1.7-9.3); % Neutrophils 60.1 % (42.2-75.2); Absolute Eosinophils 0.2 10^3/uL (0-0.7); Absolute Immature Granulocytes 0.1 10^3/uL (0-0.05); Absolute Lymphocytes 1.6 10^3/uL (1.2-3.4); Absolute Monocytes 0.9 10^3/uL (0.1-0.6); Absolute Neutrophils 4.2 10^3/uL (1.4-6.5); Hematocrit 43.4 % (39.0-52.0); Hemoglobin 14.9 g/dL (13.0-18.0); Mean Corp Hgb Conc. 34.3 g/dL (33.0-37.0); Mean Corpuscular Hgb 30.1 pg (27.0-31.0); Mean Corpuscular Volume 87.7 fL (80.0-94.0); Mean Platelet Volume 9.7 fL (7.4-10.4); Nucleated Red Blood Cells % 0 % (-); Platelet Count 182 10^3/uL (130-400); Red Blood Cell Count 4.95 10^6/uL (4.70-6.10)
[2024-01-29 07:11] LABS: Glucose - Point of Care 137 mg/dl (70-99)
[2024-01-29 07:15] LABS: Blood Urea Nitrogen 19 mg/dl (9-20); Calcium 8.4 mg/dl (8.4-10.2); Carbon Dioxide 22 mmol/L (22-30); Chloride 108 mmol/L (98-107); Estimated Creatinine Clearance 110 ml/min; Glucose 123 mg/dl (70-99); Potassium 4.2 mmol/L (3.5-5.1); Sodium 136 mmol/L (135-145); eGFR > 60.00
[2024-01-29 07:35] VITALS: BP 141/65
--- NOTE | 2024-01-29 07:46 | PN.DE.MGMTRT ---
Insulin Management
- -
01/29/2024: Diabetes Management F/U:
Patient admitted with acute onset of severe headache with photophobia and nausea, likely due to complex migraine.
PMH includes: CVA/TIAs, GERD, HTN, HLD, IDDM, A1C 7.7%, Cr 0.9, eGFR >60
Patient received steroid injection on 01/25 for right shoulder pain.
Pt is Awake, A/O x3, sitting up in bed, offers o complaints. States he had a low blood sugar incident last night, states he did not eat much at dinner
He remains on his OP regimen Basaglar 38 units @HS, NovoLog 28 units AC and Tradjenta 5 mg daily.
His glucose has been stable and in range since admission, with 1 event of Hypoglycemia, as low as 46 @20:43 last night, came up to 111 after treatment and remained stable overnight, with a FBG of 123 this AM. .
Will make no changes to regimen: Cont NovoLog 28 units AC, Basaglar 38 units @ HS and Januvia 100mg daily (Tradjenta- NF).
Diabetes History
- -
Type of Diabetes: 2 requiring insulin
Pre-Admission Diabetes Regimen
01/29/24
06:27
Creatinine 0.8
Lab Results
Hemoglobin A1c 7.7 % (4.0-5.6) H 01/27/24 05:46
Insulin Pump Settings
IP Diabetes Regimen
01/28/24 01/28/24 01/28/24
11:23 16:19 20:43
Glucose
POC Glucose 101 H 122 H 46 L*
01/28/24 01/28/24 01/29/24
21:11 22:34 00:58
Glucose
POC Glucose 111 H 136 H 150 H
01/29/24 01/29/24 01/29/24
02:59 06:27 07:09
Glucose 123 H
POC Glucose 126 H 137 H
Patient Education
[2024-01-29 08:25] VITALS: BP 141/68; PULSE 76
[2024-01-29 08:55] VITALS: BP 141/68; PULSE 76
--- NOTE | 2024-01-29 10:27 | CM ---
MD entered order for discharge .
Spoke with patient he said that he would like to resume his out pt PT at [facility] and declined VN .
Dr Dee wrote script to renew his out pt PT.
Pt said he will set up his own out pt PT.
His Sammie will drive him home.
Pt agrees with dc today.
PLAN Home no needs
[2024-01-29] MEDS: NOVOLOG FLEXPEN-MODERATE RESISTANCE SC ×2 (10:30→12:31)
[2024-01-29] MEDS: NOVOLOG FLEXPEN 28 UNITS SC (10:31)
[2024-01-29] MEDS: FEOSOL 325 MG PO (10:31)
[2024-01-29] MEDS: JANUVIA 100 MG PO (10:31)
[2024-01-29] MEDS: PROTONIX 40 MG PO (10:31)
[2024-01-29] MEDS: ZESTRIL 20 MG PO (10:32)
[2024-01-29] MEDS: VITAMIN D3 (cholecalciferol) 25 MCG PO (10:32)
[2024-01-29] MEDS: PLAVIX 75 MG PO (10:32)
[2024-01-29] MEDS: TOPROL XL 50 MG PO (10:32)
[2024-01-29 11:15] LABS: Glucose - Point of Care 169 mg/dl (70-99)
--- NOTE | 2024-01-29 11:18 | PTCARENOTE ---
Patient OOb with walker to bathroom. Patients gait is steady, but patient prefers to have someone with him. Patient has 1-2 headache, denies need for pain med at present. Patient is discharged. but want to make sure headache does not get worse
before he leaves. Hugo luís in reach.
[2024-01-29 11:25] VITALS: BP 138/68
[2024-01-29] MEDS: TORADOL 15 MG IV (12:23)
[2024-01-29] MEDS: REGLAN 10 MG IV (12:23)
[2024-01-29] MEDS: BENADRYL 25 MG IV (12:24)
--- NOTE | 2024-01-29 12:28 | PTCARENOTE ---
Rn Flow Facilitor- Patient cleared for d/c. Pete texted Dr. Dee for script for PT.
[2024-01-29] MEDS: NOVOLOG FLEXPEN SC (12:31)
--- NOTE | 2024-01-29 12:32 | PTCARENOTE ---
Patient with mild headache all morning 1-2. patient feels hedache is getting worse and would like pain medication for migraine before discharge. Medications given, patient called spouse to pick him up. Instructions given by d/c nurse.
[2024-01-29 12:54] VITALS: BP 149/70
--- NOTE | 2024-01-29 15:28 | W.PN.HOSP.TC ---
Today's Communication/Plan
-
d/c home
Assessment / Plan
Assessment / Plan
1. Presumed complex migraine episode
-Presented with acute onset of severe headache with photophobia and nausea
-Have remote history of migraine episodes
-CT head without contrast did not show any acute abnormality
-Patient got IV Toradol/Reglan in ER
-Had severe episode this morning, with holm, N/V approx 1 hr after receiving Toradol/Benadryl/Reglan. Subjective feeling better currently, but very hesistant to go home after this morning's episode. Nausea has improved as well
-Patient having breakthrough Imitrex and naproxen at discharge.
2. Episode of hyperglycemia
IDDM
-Blood glucose elevated 300+ according to patient, took home insulin without help
-Hyperglycemia episode likely from steroid injection and in turn, neuro believes neurologic symptoms were triggered by hyperglycemia.
-Continue carb controlled diet/insulin regimen, diabetic nurse petitioner consulted
3. History of lumbar laminectomy
S/p spinal stimulator in place
-Right lower extremity neuropathic symptoms, chronic in nature
History of CVA
History of CAD
Essential hypertension
GERD
BPH
Obesity
DVT PPX - heparin subq
Full code
More than 30 minutes spent in discharge including
Final examination of the patient
Summarizing hospital stay
Instructions for continuing care to all relevant caregivers
Preparation of discharge records, prescriptions, and referral forms
Total time spent (in minutes): 40 mins
Anticipated Discharge: Today
Subjective/Interval History
-
Date of Service: January 29, 2024
repeat headache episode yesterday night
better in morning today
Objective Data
-
Labs:
Laboratory Results
01/29/24
06:27
WBC 7.0
Hgb 14.9
Hct 43.4
Plt Count 182
Sodium 136
Potassium 4.2
Chloride 108 H
Carbon Dioxide 22
BUN 19
Creatinine 0.8
Glucose 123 H
Calcium 8.4
Vital Signs:
Vital Signs
Temp Pulse Resp BP Pulse Ox
97.6 F 68 16 149/70 98
01/29/24 12:54 01/29/24 12:54 01/29/24 12:54 01/29/24 12:54 01/29/24 12:54
I&O
01/28/24 01/29/24 01/30/24
06:59 06:59 06:59
Intake Total 720 / 720
Balance 720 / 720
Review of Systems
-
Respiratory: Reports No Symptoms
Cardiac: Reports No Symptoms
Abdomen/GI: Reports No Symptoms
Physical Exam
-
General: No Apparent Distress
Respiratory: Clear to Auscultation; Negative Wheezes or Rales
Cardiac: Regular Rhythm and S1/S2; Negative Murmur
Musculoskeletal: No Edema
Neuro: Awake, Alert and Oriented
[2024-01-30 00:08] LABS: Lyme Disease DNA by PCR Not Detected; Lyme Source Serum
--- NOTE | 2024-01-30 15:35 | W.DCSUMMARY ---
Discharge Summary
Discharge Data
Date of Admission: 01/26/24
Date of Discharge: 01/29/24
-
Pending Results: No
Hospital Course
Discharging Physician : Dr New Dee
Disposition : Home
Primary care physician : Dr Anne Lisa
Principal Discharge diagnosis :
Complex migraine episode
Steroid-induced hyperglycemia
Chronic Discharge diagnosis :
History of lumbar spinal surgery
Spinal stimulator in place
Essential hypertension
Gastroesophageal reflux disease
Benign prostatic hyperplasia
History of stroke
Iron deficiency anemia
Hospital Course : Patient had an emergent CT head which ruled out any acute abnormality.
68-year-old male with above-mentioned past medical history came to ER with new onset of significant headache with associated photophobia and nausea and blurring vision. Patient had gotten right shoulder steroid injection in office and was noted to
having significant Hyperglycemia in ER. Patient had emergent CT head in ER which ruled out any acute abnormalities. Patient have history of migraine and was felt to having repeat episode of complex migraine. Patient was started on IV
Reglan/Benadryl/Toradol and neurology was consulted. Patient had improvement in symptoms following day although a repeat episode occurred requiring readministration of IV medications. Part of patient migraine was felt to be brought up by
hypoglycemia/glucose toxicity. Discharge patient was provided prescription for Imitrex/naproxen to use. Patient instructed to follow-up with neurology in office for continual evaluation.
For patient Hyperglycemia patient required to be given subcutaneous insulin. Blood glucose better controlled. Patient was discharged on regular home regimen of insulin.
Important imaging findings :
None
Procedure findings :
None
Discharge Plan
-
Patient Disposition: Home (Routine Discharge)
Discharge Diagnosis/Procedures: Complex migraine episode
Condition: Fair
Diet: Regular
Activity: As tolerated
Driving Restrictions: No driving for 24 hours
Bathing Restrictions: OK to Shower
Activity Restrictions/Additional Instructions:
USE NAPROXEN AND IMITREX DOSE SIMULTANEOUSLY AND EARLY ON WHEN FEEL MIGRAINE EPISODE HAPPENING.
Referrals:
Cynthia Cedeño DO [Active] -
Anne Lisa CRNP [Family Provider] - in one week
Prescriptions:
New
sumatriptan succinate [Imitrex] 25 mg tablet
25 mg PO DAILYPRN PRN (Reason: migraine headache) Qty: 15 0RF
ondansetron 4 mg tablet,disintegrating
4 mg PO Q8H PRN (Reason: nausea and vomiting) 5 Days Qty: 15 0RF
naproxen 375 mg tablet
375 mg PO BID PRN (Reason: Migraine) Qty: 10 0RF
Continued
clopidogrel 75 MG tablet
75 mg PO DAILY Qty: 1 0RF
Tradjenta 5 MG tablet
5 mg PO DAILY
ferrous sulfate [FeroSul] 325 MG tablet
65 mg PO DAILY
insulin aspart U-100 [Novolog FlexPen U-100 Insulin] 300 UNITS/3 ML insulin pen
28 units SC AC
Patient Comments:
01/26/2024: PT TOOK 4 DOSES OF 32 UNITS TODAY, WITH LAST DOSE TAKEN AROUND 1600
insulin glargine [Basaglar KwikPen U-100 Insulin] 100 unit/mL (3 mL) insulin pen
38 unit SC HS
gabapentin 400 mg capsule
400 mg PO QPM
atorvastatin 80 mg tablet
80 mg PO HS
lisinopril 20 mg tablet
20 mg PO DAILY
cholecalciferol (vitamin D3) [Vitamin D3] 25 mcg (1,000 unit) Tablet
25 mcg PO DAILY
Ozempic 0.25 mg or 0.5 mg (2 mg/3 mL) pen injector
0.25 mg SC TH
metoprolol succinate 50 MG tablet extended release 24 hr
50 mg PO DAILY
celecoxib 200 mg Capsule
200 mg PO DAILY
pantoprazole 40 MG tablet,delayed release (DR/EC)
40 mg PO DAILY Qty: 90 0RF
Discharge Orders:
Discharge Patient (As Directed); Ordered 01/29/24
Ordered By: New Dee
Discharge Date and Time
Discharge Date/Time: 01/29/24 13:28
== END 2024-01-29 13:28 | disposition home or self-care (01) ==
LOC: 4 EAST ACU 23:02
PROVIDERS: Internal Medicine; Registered Nurse; ADMITTING PHYSICIAN Hospitalist; ATTENDING PHYSICIAN Hospitalist; CONSULT PHYSICIAN Psychiatry & Neurology Neurology; EMERGENCY PHYSICIAN Emergency Medicine; FAMILY PHYSICIAN Nurse Practitioner Family
DX: G43.109 Migraine with aura, not intractable, without status migrainosus (principal); M24.59 Contracture, other specified joint; T38.0X5A Adverse effect of glucocorticoids and synthetic analogues, initial encounter; E11.65 Type 2 diabetes mellitus with hyperglycemia; N40.0 Benign prostatic hyperplasia without lower urinary tract symptoms; D50.9 Iron deficiency anemia, unspecified; M47.817 Spondylosis without myelopathy or radiculopathy, lumbosacral region; E66.9 Obesity, unspecified; I25.10 Atherosclerotic heart disease of native coronary artery without angina pectoris; K21.9 Gastro-esophageal reflux disease without esophagitis; I10 Essential (primary) hypertension; E78.00 Pure hypercholesterolemia, unspecified; G25.3 Myoclonus; Z79.4 Long term (current) use of insulin; Z79.85 Long-term (current) use of injectable non-insulin antidiabetic drugs; Z79.1 Long term (current) use of non-steroidal anti-inflammatories (NSAID); Z79.02 Long term (current) use of antithrombotics/antiplatelets; Z96.82 Presence of neurostimulator; Z86.73 Personal history of transient ischemic attack (TIA), and cerebral infarction without residual deficits; Z79.84 Long term (current) use of oral hypoglycemic drugs; Z68.37 Body mass index [BMI] 37.0-37.9, adult
CPT/HCPCS: 70450; 80048; 80076; 82962; 83036; 83690; 83735; 84443; 85025; 85027; 85652; 86140; 87476; 93005; 96361; 96374; 96375; 97116; 97163; 97167; 97530; 99285; G0378

== ENCOUNTER → 2024-04-13 07:11 | Outpatient (REF) | payer OTHER, SELFPAY | LOC: HWRAD 07:11 | PROVIDERS: ATTENDING PHYSICIAN Orthopaedic Surgery Adult Reconstructive Orthopaedic Surgery; FAMILY PHYSICIAN Nurse Practitioner Family | DX: M77.8 Other enthesopathies, not elsewhere classified (principal); M75.40 Impingement syndrome of unspecified shoulder | CPT/HCPCS: 73200 ==

== ENCOUNTER → 2024-06-22 06:50 | Outpatient (REF) | payer OTHER, SELFPAY | LOC: HWRCS 06:50 | PROVIDERS: ATTENDING PHYSICIAN Internal Medicine Cardiovascular Disease; FAMILY PHYSICIAN Nurse Practitioner Family | DX: R06.09 Other forms of dyspnea (principal) | CPT/HCPCS: 93306 ==

== ENCOUNTER → 2024-06-23 06:49 | Outpatient (REF) | payer OTHER, SELFPAY | LOC: DHCBC/DCA 06:49 | PROVIDERS: ATTENDING PHYSICIAN Internal Medicine Cardiovascular Disease; FAMILY PHYSICIAN Nurse Practitioner Family | DX: R06.09 Other forms of dyspnea (principal) | CPT/HCPCS: 78452; 93017; A9500; J2785 ==

== ENCOUNTER → 2024-07-21 06:34 | Day surgery (SDC) | payer OTHER, SELFPAY ==
[2024-07-21 07:22] LABS: Glucose - Point of Care 168 mg/dl (70-99)
== END ==
LOC: GI 06:34
PROVIDERS: ATTENDING PHYSICIAN Internal Medicine Gastroenterology
DX: D12.5 Benign neoplasm of sigmoid colon (principal); K57.30 Diverticulosis of large intestine without perforation or abscess without bleeding; D12.8 Benign neoplasm of rectum; K64.8 Other hemorrhoids; Z86.010 Personal history of colon polyps; Z80.0 Family history of malignant neoplasm of digestive organs
CPT/HCPCS: 45385; 88305; 82962

== ENCOUNTER → 2025-01-13 10:20 | Outpatient (REF) | payer OTHER, SELFPAY | LOC: HWRAD 10:20 | PROVIDERS: ATTENDING PHYSICIAN Neurological Surgery; FAMILY PHYSICIAN Nurse Practitioner Family | DX: M46.1 Sacroiliitis, not elsewhere classified (principal) | CPT/HCPCS: 73502 ==

== ENCOUNTER → 2025-08-31 10:49 | Outpatient (REF) | payer OTHER, SELFPAY | LOC: HWRAD 10:49 | PROVIDERS: ATTENDING PHYSICIAN Anesthesiology Pain Medicine; FAMILY PHYSICIAN Nurse Practitioner Family | DX: M54.50 Low back pain, unspecified (principal); G89.29 Other chronic pain; M54.16 Radiculopathy, lumbar region | CPT/HCPCS: 72110; 73502 ==